=== PATIENT | female | born 1930 | race Caucasian/White ===

== ENCOUNTER 2018-01-13 09:55 | Inpatient (IN) | payer MEDICARE, OTHER ==
--- NOTE | 2018-01-13 10:27 | ED ---
General Adult HPI - General Chief complaint: ENT Stated complaint: Sore throat Source: patient, family Mode of arrival: EMS Limitations: no limitations - History of Present Illness Initial comments: Dictation was produced using [email or web address] dictation software. please excuse any grammatical, word or spelling errors. Chief Complaint: 87-year-old female past medical history of atrial fibrillation presents with throat fullness. History of Present Illness: In her baseline health last night when she took some pills. She went to bed feeling relatively benign. She woke up this morning and felt as though she had formed body in her throat. She states she's been coughing phlegm. She had bouts of coughing and some mild changes in her voice. She went to [facility] where she was transferred for ENT evaluation. Patient is accompanied by daughter who ports that patient is having signs of mild respiratory distress and has change in voice. The ROS documented in this emergency department record has been reviewed and confirmed by me. Those systems with pertinent positive or negative responses have been documented in the HPI. All other systems are other negative and/or noncontributory. - Related Data Home Medications Medication Instructions Recorded Confirmed Aspirin 81 mg PO DAILY 10/02/14 01/13/18 Atenolol [Tenormin] 25 mg PO DAILY 10/02/14 01/13/18 Enalapril [Vasotec] 2.5 mg PO DAILY 10/02/14 01/13/18 Hydrochlorothiazide [Hydrodiuril] 25 mg PO DAILY 10/02/14 01/13/18 Potassium Chloride [Klor-Con 10] 10 meq PO BID 10/02/14 01/13/18 Simvastatin [Zocor] 40 mg PO DAILY 10/02/14 01/13/18 Warfarin [Coumadin] 2.5 mg PO MO 10/02/14 01/13/18 Warfarin [Coumadin] 3.75 mg PO SUTUWETHFRSA 10/02/14 01/13/18 Allergies Allergy/AdvReac Type Severity Reaction Status Date / Time No Known Allergies Allergy Verified 01/13/18 10:06 Review of Systems ROS Statement: Those systems with pertinent positive or pertinent negative responses have been documented in the HPI. ROS Other: All systems not noted in ROS Statement are negative. Past Medical History Past Medical History: Atrial Fibrillation Additional Past Medical History / Comment(s): SEE DR BA'S H&P History of Any Multi-Drug Resistant Organisms: None Reported Past Surgical History: Appendectomy, Cholecystectomy, Hysterectomy, Pacemaker, Tonsillectomy Additional Past Surgical History / Comment(s): TUMOR REMOVED LT ARM,PACEMAKER- MEDTRONIC LT CHEST Past Anesthesia/Blood Transfusion Reactions: No Reported Reaction Type of Cardiac Device: Permanent Pacemaker Device Placement Date:: 2005 Past Psychological History: No Psychological Hx Reported Smoking Status: Never smoker Past Alcohol Use History: None Reported Past Drug Use History: None Reported - Past Family History Son(s) Family Medical History: Cancer Additional Family Medical History / Comment(s): ESOPHAGEAL Father Family Medical History: Cancer Additional Family Medical History / Comment(s): WITH CA AT AGE 34 General Exam - General Exam Comments Initial Comments: PHYSICAL EXAM: General Impression: Alert and oriented x3, not in acute distress HEENT: Normocephalic atraumatic, extra-ocular movements intact, pupils equal and reactive to light bilaterally, mucous membranes moist, no oropharyngeal swelling or erythema Cardiovascular: Heart regular rate and rhythm, S1&S2 audible, no murmurs, rubs or gallops Chest: Lungs clear to auscultation bilaterally, no rhonchi, no wheeze, no rales Abdomen: Bowel sounds present, abdomen soft, non-tender, non-distended, no organomegaly Musculoskeletal: Pulses present and equal in all extremities, no peripheral edema Motor: Power 5/5 bilaterally, no focal deficits noted Neurological: CN II-XII grossly intact, no focal motor or sensory deficits noted Skin: Intact with no visualized rashes Psych: Normal affect and mood Limitations: no limitations Course Vital Signs 01/13/18 01/13/18 10:02 13:00 Temperature 98.5 F 97.6 F Pulse Rate 64 75 Respiratory 16 18 Rate Blood Pressure 180/82 147/68 O2 Sat by Pulse 98 100 Oximetry Medical Decision Making - Medical Decision Making ED course: 87-year-old female presents with concerns of foreign body in throat. Vital signs upon arrival are within acceptable limits.Laboratory evaluation obtained. CBC shows no leukocytosis. Hemoglobin 10.6. Coag panel shows therapeutic INR 3.3. Metabolic panel is within acceptable limits. Soft tissue neck CT shows swelling at the hypopharynx bilaterally. Chest x-ray shows mild cardiomegaly and COPD. Computed tomography scan of the chest was obtained showing mild COPD, mild guarding mainly mild pulmonary arterial hypertension. There is a 4 mm left mid lung nodule. Discussed patient case with ENT on-call Dr. Davenport who was seen at bedside evaluating patient. He informed his oropharyngeal scoping and found findings consistent with early adult epiglottitis. Recommends steroid administration, infectious disease consult. He also recommended patient be admitted to selective care. Patient be admitted to [facility] care. - Lab Data Result diagrams: 01/13/18 11:28 01/13/18 11:28 Lab Results 01/13/18 01/13/18 01/13/18 Range/Units 11:28 11:28 11:28 WBC 9.3 (3.8-10.6) k/uL RBC 3.68 L (3.80-5.40) m/uL Hgb 10.6 L (11.4-16.0) gm/dL Hct 32.0 L (34.0-46.0) % MCV 87.0 (80.0-100.0) fL MCH 28.8 (25.0-35.0) pg MCHC 33.1 (31.0-37.0) g/dL RDW 13.0 (11.5-15.5) % Plt Count 156 (150-450) k/uL Neutrophils % 89 % Lymphocytes % 4 % Monocytes % 6 % Eosinophils % 1 % Basophils % 0 % Neutrophils # 8.3 H (1.3-7.7) k/uL Lymphocytes # 0.4 L (1.0-4.8) k/uL Monocytes # 0.5 (0-1.0) k/uL Eosinophils # 0.1 (0-0.7) k/uL Basophils # 0.0 (0-0.2) k/uL PT 29.8 H (9.0-12.0) sec INR 3.3 H (<1.2) Sodium 130 L (137-145) mmol/L Potassium 4.8 (3.5-5.1) mmol/L Chloride 97 L (98-107) mmol/L Carbon Dioxide 23 (22-30) mmol/L Anion Gap 10 mmol/L BUN 31 H (7-17) mg/dL Creatinine 1.21 H (0.52-1.04) mg/dL Est GFR (CKD-EPI)AfAm 47 (>60 ml/min/1.73 sqM) Est GFR (CKD-EPI)NonAf 41 (>60 ml/min/1.73 sqM) Glucose 97 (74-99) mg/dL Calcium 9.4 (8.4-10.2) mg/dL Disposition Clinical Impression: Epiglottitis Disposition: ADMITTED IP TO THIS HOSP Referrals: Romel Thomason MD [Primary Care Provider] - 1-2 days Decision Time: 13:31
[2018-01-13] MEDS ORDERED: RX INFO: IV CONTRAST WAS GIVEN 1 EACH MISC MISCELLANE PRN (10:41)
--- NOTE | 2018-01-13 10:53 | XR ---
EXAMINATION TYPE: XR chest 2V DATE OF EXAM: 01/13/2018 COMPARISON: None HISTORY: 87 year-old female shortness of breath, difficulty breathing, sore throat, TECHNIQUE: AP and lateral views FINDINGS: Left anterior chest wall pacemaker generator with right atrial and right ventricular leads. Heart is mildly enlarged. Diffuse interstitial prominence with hyperinflation and increased retrosternal clear space. Posterior basilar opacity could represent trace effusions. IMPRESSION: Mild cardiomegaly and COPD. Interstitial changes and possible trace effusions. Correlate for superimp osed mild CHF.
--- NOTE | 2018-01-13 11:19 | CT ---
EXAMINATION TYPE: CT soft tissue neck wo con DATE OF EXAM: 01/13/2018 COMPARISON: None HISTORY: 87-year-old female oral foreign body, Difficulty swallowing TECHNIQUE: Contiguous axial scanning of the soft tissues of the neck without IV contrast. Coronal and sagittal reconstructions performed. CT DLP: 390 mGycm Automated exposure control for dose reduction was used. FINDINGS: Visualized intracranial structures, orbits and globes, and mastoid air cells appear clear. Cerumen wi thin the left external auditory canal. Trace mucosal thickening ethmoid air cells. Lack of IV contrast limits assessment of the mucosal space and for cervical lymph nodes. Allowing for noncontrast technique, the nasopharynx appears clear. The oropharynx appears grossly clear. Epiglottis and prevertebral soft tissues are relatively normal. However, at the level of the hypopharynx, there is marked thickening along the aryepiglottic folds an d narrowing of the supraglottic airway to 5 mm and with effacement of the piriform sinuses. Some circumferential narrowing extends to the level of the false cords. More normal appearance at the level of the true cords. The tracheal column appears clear. Visualized upper lungs are limited by motion. There is biapical pleural-parenchymal scarring with tra ce effusions and underlying centrilobular emphysema. Generator device projects along the anterior lef t chest large caliber to the main right and the pulmonary arteries and 3.1 and 2.6 cm, respectively, suggesting underlying pulmonary hypertension. Noncontrast appearance of the thyroid gland is unremarkable. The submandibular and parotid glands are atrophic. No definite cervical lymphadenopathy identified. IMPRESSION: 1. ABNORMAL SOFT TISSUE THICKENING BILATERALLY ALONG THE ARYEPIGLOTTIC FOLDS EFFACING THE PIRIFORM SI NUSES AND NARROWING THE SUPRAGLOTTIC AIRWAY TO 5 MM. Correlate for possible etiologies such as infect ion and angioedema. Neoplasm also remains possible but the symmetry makes it somewhat less likely. Ap propriate follow-up recommended. 2. No radiopaque foreign body is identified. 3. Trace effusions and COPD. Pulmonary arterial hypertension.
[2018-01-13 11:40] LABS: Basophils % (A) 0 %; Eosinophils # (A) 0.1 k/uL (0-0.7); Eosinophils % (A) 1 %; HGB 10.6 gm/dL (11.4-16.0); Lymphocytes # (A) 0.4 k/uL (1.0-4.8); Lymphocytes % (A) 4 %; MCH 28.8 pg (25.0-35.0); MCHC 33.1 g/dL (31.0-37.0); Mean Platelet Volume 6.4; Monocytes # (A) 0.5 k/uL (0-1.0); Monocytes % (A) 6 %; Neutrophils # (A) 8.3 k/uL (1.3-7.7); Neutrophils % (A) 89 %; Platelet Count 156 k/uL (150-450); RBC 3.68 m/uL (3.80-5.40); WBC 9.3 k/uL (3.8-10.6)
--- NOTE | 2018-01-13 11:43 | CT ---
EXAMINATION TYPE: CT chest w con DATE OF EXAM: 01/13/2018 COMPARISON: Radiograph same day HISTORY: 87-year-old female with pain, Difficulty swallowing with abnormal CXR TECHNIQUE: Contiguous axial scanning of the chest after the administration of 70 mL of Isovue 300. Co jeannette/sagittal reconstructions performed. Patient's previous renal function was obtained from [facility] in GFR on 09/26/2017 was 2 6 vs 33 today. Suspect underlying chronic kidney disease in this patient. CT DLP: 320mGycm. Automatic exposure control utilized for a dose reduction. FINDINGS: Left anterior chest wall pacemaker generator with right atrial and right ventricular leads. Heart mildly enlarged. Mild coronary vascular calcifications. Conventional arch vessel branching anatomy with mild atherosclerotic arch calcifications. Large caliber to the main right and left pulmonary arteries and 2.7 cm suggesting underlying pulmonar y artery hypertension. No thoracic lymphadenopathy by CT size criteria. There are trace pleural effusions with some septal lines in the lower lungs, strandy areas of atelect asis, mild dependent atelectasis, and mild centrilobular emphysema. 4 mm peripheral left midlung pulmonary nodule can be reassessed in one year. Distention of the IVC. Visualized upper abdomen shows cholecystectomy clips and partially visualized cysts in the kidneys measuring up to at least 4.8 cm on the left. Bones: Accentuated upper thoracic kyphosis. There is some bony bridging of the supraspinous ligament. Moderate degenerative disc disease mid thoracic spine. IMPRESSION: 1. COPD with mild emphysema. 2. Cardiomegaly, pulmonary arterial hypertension, trace effusions, and mild septal lines in the lower lungs could reflect mild fluid overload/CHF. No mary pulmonary edema. 3. 4 mm left mid lung pulmonary nodule can be reassessed in one year.
[2018-01-13 11:53] LABS: INR 3.3 (<1.2); Prothrombin Time 29.8 sec (9.0-12.0)
[2018-01-13 12:00] LABS: Calcium 9.4 mg/dL (8.4-10.2); Potassium 4.8 mmol/L (3.5-5.1)
--- NOTE | 2018-01-13 13:21 | P.GSCN ---
History of Present Illness Consult date: 01/13/18 Reason for Consult: Dysphagia,throat pain Requesting physician: Carlos Davenport History of present illness: This patient is an 87-year-old white female who presented to [facility] emergency room earlier this morning then transferred here to [facility] for her neurologic care. This patient tells me that late last night she started having some difficulty with swallowing and throat pain a crescendoed and worsened this morning was brought to the emergency room by her daughter. Her current symptoms are one of throat pain and dysphagia. She has no airway symptoms rest of her examination was unremarkable laboratory evaluation was also unremarkable. Soft tissue x-ray was unremarkable. Abdomen asked to consult for a reevaluation. Review of Systems - Constitutional Reports anorexia - EENT Ears, nose, mouth and throat: Reports sore throat, Denies bleeding gums - Cardiovascular Denies claudication - Respiratory Denies congestion - Gastrointestinal Denies abdominal pain - Genitourinary Genitourinary: Denies difficulty voiding Menstruation: Reports postmenopausal - Musculoskeletal Denies frequent falls - Integumentary Denies brittle nails - Neurological Denies change in mentation - Psychiatric Denies anxiety attacks - Endocrine Denies cold intolerance - Hematologic/Lymphatic Reports easy bleeding (development both management with some pains until September) - Allergic/Immunologic Reports allergic rhinitis (A level of without really making: Floaters the winter [place] block but is an EKG [place]: 44 mg) Past Medical History Past Medical History: Atrial Fibrillation Additional Past Medical History / Comment(s): SEE DR BA'S H&P History of Any Multi-Drug Resistant Organisms: None Reported Past Surgical History: Appendectomy, Cholecystectomy, Hysterectomy, Pacemaker, Tonsillectomy Additional Past Surgical History / Comment(s): TUMOR REMOVED LT ARM,PACEMAKER- MEDTRONIC LT CHEST Past Anesthesia/Blood Transfusion Reactions: No Reported Reaction Type of Cardiac Device: Permanent Pacemaker Device Placement Date:: 2005 Past Psychological History: No Psychological Hx Reported Smoking Status: Never smoker Past Alcohol Use History: None Reported Past Drug Use History: None Reported - Past Family History Son(s) Family Medical History: Cancer Additional Family Medical History / Comment(s): ESOPHAGEAL Father Family Medical History: Cancer Additional Family Medical History / Comment(s): WITH CA AT AGE 34 Medications and Allergies Home Medications Medication Instructions Recorded Confirmed Type Aspirin 81 mg PO DAILY 10/02/14 01/13/18 History Atenolol [Tenormin] 25 mg PO DAILY 10/02/14 01/13/18 History Enalapril [Vasotec] 2.5 mg PO DAILY 10/02/14 01/13/18 History Hydrochlorothiazide [Hydrodiuril] 25 mg PO DAILY 10/02/14 01/13/18 History Potassium Chloride [Klor-Con 10] 10 meq PO BID 10/02/14 01/13/18 History Simvastatin [Zocor] 40 mg PO DAILY 10/02/14 01/13/18 History Warfarin [Coumadin] 2.5 mg PO MO 10/02/14 01/13/18 History Warfarin [Coumadin] 3.75 mg PO SUTUWETHFRSA 10/02/14 01/13/18 History Allergies Allergy/AdvReac Type Severity Reaction Status Date / Time No Known Allergies Allergy Verified 01/13/18 10:06 Surgical - Exam Osteopathic Statement: *. No significant issues noted on an osteopathic structural exam other than those noted in the History and Physical/Consult. Vital Signs Temp Pulse Resp BP Pulse Ox 98.5 F 64 16 180/82 98 01/13/18 10:02 01/13/18 10:02 01/13/18 10:02 01/13/18 10:02 01/13/18 10:02 - General well developed, well nourished, no distress - Eyes PERRL, normal ocular movement - ENT normal pinna, normal nares, normal mucosa, no congestion - Neck Left neck tenderness and fullness appreciated no masses, no bruits, trachea midline, no lymphadectomy - Respiratory normal expansion, normal respiratory effort, clear to percussion - Cardiovascular Rhythm: regularly irregular Results - Labs 01/13/18 11:28 01/13/18 11:28 Abnormal Lab Results - Last 24 Hours (Table) 01/13/18 01/13/18 01/13/18 Range/Units 11:28 11:28 11:28 RBC 3.68 L (3.80-5.40) m/uL Hgb 10.6 L (11.4-16.0) gm/dL Hct 32.0 L (34.0-46.0) % Neutrophils # 8.3 H (1.3-7.7) k/uL Lymphocytes # 0.4 L (1.0-4.8) k/uL PT 29.8 H (9.0-12.0) sec INR 3.3 H (<1.2) Sodium 130 L (137-145) mmol/L Chloride 97 L (98-107) mmol/L BUN 31 H (7-17) mg/dL Creatinine 1.21 H (0.52-1.04) mg/dL Diabetes panel 01/13/18 Range/Units 11:28 Sodium 130 L (137-145) mmol/L Potassium 4.8 (3.5-5.1) mmol/L Chloride 97 L (98-107) mmol/L Carbon Dioxide 23 (22-30) mmol/L BUN 31 H (7-17) mg/dL Creatinine 1.21 H (0.52-1.04) mg/dL Glucose 97 (74-99) mg/dL Calcium 9.4 (8.4-10.2) mg/dL Calcium panel 01/13/18 Range/Units 11:28 Calcium 9.4 (8.4-10.2) mg/dL Pituitary panel 01/13/18 Range/Units 11:28 Sodium 130 L (137-145) mmol/L Potassium 4.8 (3.5-5.1) mmol/L Chloride 97 L (98-107) mmol/L Carbon Dioxide 23 (22-30) mmol/L BUN 31 H (7-17) mg/dL Creatinine 1.21 H (0.52-1.04) mg/dL Glucose 97 (74-99) mg/dL Calcium 9.4 (8.4-10.2) mg/dL Adrenal panel 01/13/18 Range/Units 11:28 Sodium 130 L (137-145) mmol/L Potassium 4.8 (3.5-5.1) mmol/L Chloride 97 L (98-107) mmol/L Carbon Dioxide 23 (22-30) mmol/L BUN 31 H (7-17) mg/dL Creatinine 1.21 H (0.52-1.04) mg/dL Glucose 97 (74-99) mg/dL Calcium 9.4 (8.4-10.2) mg/dL Assessment and Plan (1) Dysphagia Current Visit: Yes Status: Acute Code(s): R13.10 - DYSPHAGIA, UNSPECIFIED SNOMED Code(s): 87628814 (2) Throat pain in adult Current Visit: Yes Status: Acute Code(s): R07.0 - PAIN IN THROAT SNOMED Code(s): 047583325 (3) Acute epiglottitis Current Visit: Yes Status: Acute Code(s): J05.10 - ACUTE EPIGLOTTITIS WITHOUT OBSTRUCTION SNOMED Code(s): 82994997 Plan: This patient has acute adult epiglottitis. Treatment with antibiotics and steroids as recommended. Blood cultures were drawn. Suspected organism is Haemophilus influenza. Recommend infectious disease consultation and close airway observation. Prefer ICU admission but are intensive care unit is full so we will send her to [facility] with close observation and telemetry. Time with Patient: Greater than 30
--- NOTE | 2018-01-13 13:23 | P.OP ---
Date of Procedure: 01/13/18 Preoperative Diagnosis: Throat pain dysphasia Postoperative Diagnosis: Acute adult epiglottitis Procedure(s) Performed: Nasopharngo- laryngoscopy, fiber-optic Anesthesia: none Surgeon: Carlos Davenport Estimated Blood Loss (ml): 0 Pathology: none sent Condition: stable Disposition: PACU Indications for Procedure: Patient has dysphasia and throat pain. Endoscopy was recommended for definitive diagnosis Operative Findings: Visual was found have severe epiglottic edema and arytenoid edema on the left side. Description of Procedure: This patient was placed in an upright position and endoscope was placed into the patient's nose with care to avoid any trauma to the septum or mucosa. Endoscopy was performed along the floor the nose on the left into the nasopharynx oropharynx and hypopharynx. Left-sided epiglottis and aryepiglottic fold and false cords were edematous and swollen with purulence present.
[2018-01-13] MEDS ORDERED: NALOXONE 0.4 MG/ML 1 ML VIAL IV PRN (13:27)
[2018-01-13] MEDS ORDERED: AMPICILLIN SULBACTAM IVPB SCH (13:30)
[2018-01-13] MEDS ORDERED: SODIUM CHLORIDE 0.9% IVPB SCH (13:30)
[2018-01-13] MEDS ORDERED: AMPICILLIN-SULBACTAM 3 GM in SODIUM CHLORIDE 0.9% 100 ML IVPB SCH (14:15)
[2018-01-13 15:58] VITALS: BMI 25.2
[2018-01-13 16:42] LABS: Glucose,Whole Blood 114 mg/dL (75-99)
[2018-01-13] MEDS: methylPREDNISolone SOD SUCCI 125 MG/2 ML VIAL IV SCH ×2 (17:07→23:17)
[2018-01-13] MEDS: AMPICILLIN-SULBACTAM 3 GM in SODIUM CHLORIDE 0.9% 100 ML IVPB SCH ×2 (17:58→23:18)
[2018-01-13] MEDS ORDERED: hydrALAZINE HCL 20 MG/ML 1 ML VIAL IVP PRN (18:08)
[2018-01-13] MEDS ORDERED: WARFARIN 2.5 MG TAB PO SCH (18:15)
[2018-01-13] MEDS: BUDESONIDE 0.25 MG/2 ML NEBU INHALATION SCH (19:24)
[2018-01-13] MEDS: PANTOPRAZOLE 40 MG/10 ML VIAL IVP SCH (19:59)
[2018-01-13 20:42] LABS: Glucose,Whole Blood 154 mg/dL (75-99)
[2018-01-13] MEDS: INSULIN ASPART 100 UNIT/ML 1 ML 10 ML VIAL SQ SCH (21:07)
--- NOTE | 2018-01-13 22:04 | HP ---
HISTORY AND PHYSICAL DATE OF SERVICE: 01/13/2018. ATTENDING PHYSICIAN: Dr. Romel Thomason. The patient is age 87-year-old white female . DATA: She is a 5 foot 3 inches, weight 64.5 kg, BSA 1.67 m2, BMI 25.2 kg/m2. Her allergy is unknown before. CHIEF COMPLAINT: The patient transferred from [facility] after she was evaluated in the ER and subsequently they transferred her to the ER at [facility]. The patient's chief complaint: She had inability to swallow with something in her throat, could not speak as well. HISTORY OF PRESENT ILLNESS: Mrs. Schwartz who is an 87 years old white female was presented initially to [facility] for evaluation with the loss of voice and as well as wheezing and that was today. They did a chemistry profile in that facility, found that her chloride was 95, carbon dioxide 23.8, BUN 32, creatinine 1.5, and glucose was 110, calcium 9.3, AST 26, ALT 24, alkaline phosphatase 150, total protein 7.2, albumin 3.8, bilirubin 0.8. Estimated glomerular filtration rate for non- was 33 with the underlying chronic kidney disease stage 3. She had rapid strep screen was done and was negative and she had a pro-time and INR and her pro-time was 35 and INR was prolonged at 3.058. Her white count however at [facility] was 8.3 with a hemoglobin of 10.9 and hematocrit 31.5 with the added underlying anemia. Her MCV was 85.3, and the platelet count was normal 167. She had a BMP and that BMP was indicating that she had 3688 with the elevated appeared to be underlying chronic cardiac abnormality. In reviewing of these laboratory as well they did soft tissue fullness in the epiglottis and subepiglottis area, which was done 01/13. She had a chest x-ray and the chest x-ray was indicating the right basilar atelectasis. Chronic interstitial lung disease correlate with COPD. The patient herself feeling took last night stuck in her throat with the shortness of breath. The chest x-ray showed hyperinflation with COPD and there is coarsened interstitial. No pneumothorax. Subsegmental changes in the right lung and she had a curvature of the spine with degenerative arthritis. Her medication was including warfarin and she was using Voltaren gel, spironolactone, simvastatin, omeprazole, multivitamin with PreserVision, lutein, and that is the 1 that she took with the Coumadin at night and felt that this pill stuck in her throat causing her problems. She also on Lasix and enalapril, which is ISMA inhibitor and Atenolol and aspirin 81 mg. She has been using Maalox and lidocaine, and Acetaminophen. PAST MEDICAL HISTORY: Past medical history of hypertension, hypercholesteremia, arthritis, atrial fibrillation and pacemaker and history of congestive heart failure. In the [facility] facility, her temperature was 98.2, and she has 100% pulse ox, respiratory rate 16, and blood pressure 161/82, of the right arm in the laying down position. Underlying past medical history has a history of arthritis, atrial fibrillation, congestive heart failure, hypercholesterolemia and hypertension and had a cardiac pacemaker and her cardiology is Dr. Delong. On the laboratory, the chemistry was done as well and found that her sodium was 126, which is hyponatremic, also, BUN of 32 and creatinine 1.5 with the underlying chronic kidney disease stage 3. The pro-time as mentioned above was mildly exceeding the 3. The final diagnosis of the chest x-ray on 01/13/2018 today and today showed that had chronic interstitial lung disease or venous congestion and correlate with COPD and x- ray of the neck showed that soft tissue there is facet arthropathy and also soft tissue fullness in the epiglottic and subglottic area and subsequently the patient transferred from [facility] to the [facility] ER where she was seen by Dr. Donte Niocle ER physician and as he has expressed in his note of the same, that presented with last night, took some pills and this morning she could not eat and feeling it in the throat, coughing up the phlegm as well and she changed her voice. Subsequently, they called Dr. Davenport, the ENT on-call, and he came actually and saw the patient and advised to be admitted to gear [facility] and he did endoscopy with the laryngeal scope fiberoptic and with the underlying dysphagia and throat pain and he found that she had severe epiglottic edema and arytenoid edema on the left side. He recommended that the patient be admitted and started on steroid and Infectious Disease consultation. Patient subsequently seen by Dr. Leonard, infectious Disease and Dr. Davenport his assessment dysphagia and throat pain in the acute epiglottitis. He has a treatment with antibiotic and culture and could be the Haemophilus influenza as a possibility was present and with the close observation and intensive care. He requested intensive care, however, was not available bed as it was full and admitted to the gear finisher bed. She had by the x-ray abnormal soft tissue thickening bilaterally along the aryepiglottic fold effacing the piriform sinus and narrowing of the supraglottic airway to 5 mm. No opaque foreign body is identified and there is trace effusion and COPD and pulmonary arterial hypertension. Her chest x- ray showed cardiomegaly and COPD and interstitial changes. CT scan of the chest was also obtained prior to the admission with the finding indicating left anterior chest wall pacemaker generator with the right atrial and right ventricular lead. She had mild enlargement of the heart and mild coronary vascular calcification. She had large caliber main right and left pulmonary artery and 2.7 cm suggesting of underlying pulmonary hypertension. There is trace pleural effusion and there is 4 mm of the left mid lung pulmonary nodule could not be assessed now, but he had mentioned to be the assessed in 1 year duration. On the continuation, review of systems, patient family history: She had 2 sons. One son with cancer and another son is doing fine and the son who with cancer has esophageal and after he got out of [facility] found that metastasized. She has a 3 daughters and as well emphysema, 1 of them had emphysema and and 2 daughters are fine. ALLERGIES: His allergy was mention unknown, however, probably there is the current history indicated there is some associated allergy with her medication REVIEW OF SYSTEMS: Patient unable to communicate. Her daughter at bedside, able to sit and communicate and she stated that she has been feeling well and she denied any depression or anxiety and cardiovascular no chest pain or anginal pain or history only for pacemaker and history of atrial fibrillation. The chest, no pulmonary shortness of breath. No cough, now currently with the feeling of obstruction and swelling of the oropharynx. She has been spitting. The GI no nausea, vomiting, or diarrhea or hematochezia or hematemesis or melena. On the no dysuria or hematuria. The musculoskeletal was fine and she is able to walk and she is able to eat prior to this event. PHYSICAL EXAMINATION: The patient is conscious, alert, oriented. Her vital signs are temperature 97.9, pulse 79, respiratory rate 18, blood pressure 142/76, and she is a mean 98 and saturation on room air 97. The HEENT: The head was no normocephalic, atraumatic. The pupil was equal, reactive. She is able to hear and she unable to speak with underlying aphasia or difficulty of speech or hoarseness of voice associated with the epiglottitis. The neck was supple. No lymphadenopathy and trachea midline. The chest was aerated bilateral with increased anteroposterior diameter and she had a mild dorsal kyphosis. The heart was PMI in the 5th intercostal space outside midclavicular line with the underlying irregular irregularities with the left infraclavicular pacemaker. The abdomen is soft, positive bowel sounds. Extremities: No edema and positive pulses bilateral and symmetrical. Neurological examination was negative. ASSESSMENT: 1. The association of the epiglottitis could be infection with Haemophilus influenzae. However, the effect was very sudden from not with the 12 hour at least and possibility of allergic effect has been happen from medication or pill and at this time I did review her medication list and I did hold for the medication suspicious which is could be ISMA inhibitor and that has been held. Also the nonsteroidal anti- inflammatory can do that as well and we held all this medication. 2. Hypertension with hypertensive heart disease. 3. Atrial fibrillation, currently controlled ventricular response. 4. Degenerative osteoarthritis. With the current problem with swallowing of the epiglottitis with no previous progression, suddenly happened probably after she took her 2 pills at night, 1 of the Coumadin which she has been for a long time and the other 1 is PreserVision and we are trying to see if any component of the PreserVision did that. However, the compound of medication that she is using right now will be the possible effect. PLAN: The plan for treatment: 1. Antibiotic. 2. Steroids, systemic which ordered by Dr. Davenport which he is on consultation. 3. We held all the blood pressure medication due to inability to swallow the pills and we are starting her on Budesonide inhalation 0.25 mg inhalation twice a day for the inhaler to the upper respiratory system to help improvement. 4. Further laboratory will be tomorrow and will see if improvement. 5. Meanwhile, we started her on pantoprazole and IV piggyback to decrease the swelling as well and 40 mg. 6. As well as Atarax 10 mg twice a day. The current diagnosis of as mentioned above: 1. Acute epiglottitis. 2. Hypertension. 3. History of atrial fibrillation. 4. History of chronic obstructive pulmonary disease with emphysema and by the x-ray. 5. Underlying problem with history of congestive heart failure. However, we do not have any previous echo to clarify that issue. 6. We will be monitoring the patient and further treatment depends on the outcome. MMODL / IJN: [id number] /
[2018-01-13] MEDS: DICLOFENAC SODIUM GEL 100 GM TUBE TOPICAL PRN (23:18)
[2018-01-14 05:50] LABS: Glucose,Whole Blood 149 mg/dL (75-99)
[2018-01-14] MEDS: AMPICILLIN-SULBACTAM 3 GM in SODIUM CHLORIDE 0.9% 100 ML IVPB SCH ×4 (06:03→23:14)
[2018-01-14 06:32] LABS: Basophils % (A) 0 %; Eosinophils % (A) 0 %; HCT 31.2 % (34.0-46.0); HGB 10.3 gm/dL (11.4-16.0); Lymphocytes # (A) 0.2 k/uL (1.0-4.8); Lymphocytes % (A) 3 %; MCH 28.5 pg (25.0-35.0); MCHC 32.8 g/dL (31.0-37.0); MCV 86.9 fL (80.0-100.0); Mean Platelet Volume 6.8; Monocytes # (A) 0.1 k/uL (0-1.0); Monocytes % (A) 2 %; Neutrophils # (A) 6.9 k/uL (1.3-7.7); Neutrophils % (A) 95 %; Platelet Count 139 k/uL (150-450); WBC 7.2 k/uL (3.8-10.6)
[2018-01-14 06:34] LABS: INR 3.7 (<1.2); Prothrombin Time 33.6 sec (9.0-12.0)
[2018-01-14] MEDS: INSULIN ASPART 100 UNIT/ML 1 ML 10 ML VIAL SQ SCH ×4 (06:37→20:54)
[2018-01-14 06:50] LABS: Calcium 9.7 mg/dL (8.4-10.2); Potassium 4.6 mmol/L (3.5-5.1)
[2018-01-14] MEDS: BUDESONIDE 0.25 MG/2 ML NEBU INHALATION SCH ×2 (08:24→20:59)
[2018-01-14] MEDS: methylPREDNISolone SOD SUCCI 125 MG/2 ML VIAL IV SCH ×3 (08:41→23:14)
[2018-01-14] MEDS: PANTOPRAZOLE 40 MG/10 ML VIAL IVP SCH ×2 (08:41→19:42)
[2018-01-14] MEDS: ATENOLOL 25 MG TAB PO SCH ×2 (08:41→11:40)
--- NOTE | 2018-01-14 08:41 | CONS ---
CONSULTATION DATE OF SERVICE: 01/13/2018. REASON FOR CONSULTATION: Epiglottitis. HISTORY OF PRESENT ILLNESS: The patient is an 87-year-old female who apparently started having some difficulty swallowing and some sore throat last evening. Apparently the patient seemed to have been unable to swallow one of her pills. She has been complaining of some dull aching pain to the throat area, mostly with swallowing, intensity about 4 to 5/10, and no radiation. The patient denies other URI symptoms. Did have some chills but denies any high-grade fever. No nausea, no vomiting. No abdominal pain or any diarrhea. With these symptoms, the patient initially presented to the [facility]. Subsequently the patient has been to [facility] to be evaluated by neurology. On arrival, the patient did have a soft tissue neck CT obtained, which did show abnormal soft tissue thickening bilaterally along the narrow epiglottic folds, piriform sinuses and narrowing of the supraglottic airway. Culture for possible etiologies such as infection and angioedema. The patient has been evaluated by ENT and confirmed the diagnosis of epiglottitis. The patient has been admitted to the hospital. She was started on Unasyn and Solu-Medrol. Infectious Disease was consulted for further recommendation regarding antibiotic therapy. The patient did not recall if she has been around any little kids and nobody else in the family has been sick with similar illness. REVIEW OF SYSTEMS: CONSTITUTIONAL: Positive for weakness and some chills. No fever has been recorded. EYES: No complaint. ENT: As per HPI. RESPIRATORY: As per HPI. CARDIOVASCULAR: No complaint. GENITOURINARY: No complaint. GASTROINTESTINAL: No complaint. MUSCULOSKELETAL: No complaint. INTEGUMENTARY: No complaint. PSYCHOLOGICAL: No complaint. ENDOCRINE: No complaint. NEUROLOGIC: No complaint. PAST MEDICAL HISTORY: Significant for atrial fibrillation. PAST SURGICAL HISTORY: Appendectomy, cholecystectomy, hysterectomy, pacemaker placement, tumor removed from the left arm. SOCIAL HISTORY: No history of smoking, drinking, or drug use. FAMILY HISTORY: No pertinent findings noticed. ALLERGIES: No known drug allergies. MEDICATIONS: The patient is currently on Unasyn 3 g q.12h. She is on Tenormin, Pulmicort, , hydralazine, NovoLog, Solu-Medrol, Narcan Protonix, and Coumadin. PHYSICAL EXAMINATION: Her blood pressure is 132/74 with a pulse of 71. Temperature of 97. She is 97% on room air. General description is an elderly female, lying in bed in no distress. No tachypnea or accessory muscle of respiration use. HEENT: Shows slight pallor. No scleral icterus. Oral mucosa is moist. No pharyngeal erythema or thrush. NECK: Trachea central. No thyromegaly. LUNGS: Unlabored breathing. Clear to auscultation anteriorly. No wheeze or crackle. HEART: S1, S2 is regular rhythm. ABDOMEN: Soft, no tenderness. No guarding or rigidity. EXTREMITIES: No edema feet. SKIN EXAMINATION: No rash or mass palpable. NEUROLOGICAL: The patient is awake, alert, oriented x3. Mood and affect normal. LABS: Hemoglobin is 10.5, white count 9.3 with a BUN of 31, creatinine is 1.1. Electrolytes have been normal. CT report as mentioned above. Blood cultures obtained which are currently pending. DIAGNOSTIC IMPRESSION AND PLAN: Patient admitted to hospital with difficulty swallowing, sore throat with evidence of epiglottitis on the resolution of pharyngeal area by the ENT, which could be either a viral or bacterial etiology. However, the lack of systemic symptoms and no elevated white count which points to possible infectious etiology. However, due to her will recommend coverage with antibiotics while waiting for her condition to stabilize. PLAN: 1. Blood culture has been obtained, which we will follow. 2. We will increase the Unasyn to 3 g q.6 hours. The patient's creatine kinase is 47. 3. We will follow up on her clinical condition as well as cultures to further adjust medication if needed. Thank you for this consultation. Will follow this patient along with you. MMODL / IJN: [id number] /
[2018-01-14 12:04] LABS: Glucose,Whole Blood 131 mg/dL (75-99)
[2018-01-14] MEDS: WARFARIN 1.25 MG TAB PO SCH (15:44)
[2018-01-14 17:07] LABS: Glucose,Whole Blood 131 mg/dL (75-99)
[2018-01-14 20:31] LABS: Glucose,Whole Blood 197 mg/dL (75-99)
--- NOTE | 2018-01-14 22:44 | PN ---
PROGRESS NOTE ATTENDING PHYSICIAN AND PCP: Dr. Romel Thomason. Admitted on 01/13/2018 The patient admitted after she was seen in the emergency room at [facility] and transferred by ambulance to [facility] ER and subsequently seen by Dr. Davenport and the ENT and Dr. Leonard, infectious Disease. The patient was diagnosed with the acute epiglottitis and of a sudden onset with the questionable sticking of tablet in her throat and she was thought that PreserVision pills. Subsequently, she could not speak. She could not swallow with acute hard swallowing and could not breathe and however they came to the ER. Dr. Davenport did endoscopy and found that the above had and subsequent treated with the steroids. The patient today on examination: She is conscious, alert, oriented, very happy that she is able to speak now and is able to communicate and she does not have fluoride on the pad and meanwhile she is breathing better. She is eating better but still some difficulties of the throat. Her vital signs indicating the temperature 97 orally, pulse is 72, respiratory rate 16, and blood pressure 132/60, mean 84 and room air 97. She has the sputum preliminary sputum was nondiagnostic and she had blood cultures no growth in 24 hours and so far no evidence of Haemophilus influenzae, however that is symptomatic acute allergic effect and could be from medication and for that purpose we adjusted her medication and we removed the inflected medicine that can do this problem. Today, her blood pressure is normal 132/60 and the medication currently is she is on antibiotic with the possibility of Haemophilus influenzae. She is on budesonide inhalation to help resolution of the edema of the epiglottis and she has a Voltaren cream for the arthritis gel only local. She is on hydralazine IV push every 6 hours if the blood pressure is high above of 50, which is not at this time. She is in insulin to scale and she is not receiving it. She is also on prednisone 60 mg IV q.8 hours for the dilution of the acute edema with typical of epiglottitis. She is also on pantoprazole IV and will continue that until tomorrow and she is on warfarin and also warfarin is 2.5 mg once a daily, and we will be continuing to monitor the atrial fibrillation and her Coumadin today is exceeding 3 and we will hold the Coumadin today and continue tomorrow and obtaining the PT and INR. On today, her INR was indicating to be 3.7, and we will be holding the Coumadin today. I did communicate that with Maida the RN that is taking care of the patient. Examination HEENT was negative. Neck was supple and she is able to swallow and she still has some spitting, clear liquid, no sputum. The neck was supple and no JVD. Feeling much improved in the lower neck. CHEST: Clear to auscultation percussion and the heart was irregular irregularities with atrial fibrillation and occasionally pacing as she had left infraclavicular pacemaker. The abdomen is soft. Positive bowel sounds. No organ enlargement. EXTREMITIES: No edema and positive pulses. No neurological deficit. ASSESSMENT: 1. Underlying hypertension controlled presented with epiglottitis with hoarseness of voice and epiglottis with the underlying found by laryngeal scope fiberoptic that she had epiglottic edema and arytenoid edema on the left side and was severe in nature. 2. Chronic obstructive pulmonary disease. 3. Mild emphysema. 4. Cardiomegaly. 5. History of pulmonary hypertension. 6. Trace effusion. 7. Mild septal line in the lower lung, reflecting mild congestive heart failure. No mary pulmonary edema. A 4 mm left mid lung pulmonary nodule need to be reassessed in 1 year. PLAN: Patient will be continued care by Dr. Romel Thomason who is her PCP tomorrow and he will be following the patient and future CAT scan as well as future plans for discharge. MMODL / IJN: [id number] /
[2018-01-14] MEDS: DICLOFENAC SODIUM GEL 100 GM TUBE TOPICAL PRN (23:14)
[2018-01-15 06:04] LABS: Glucose,Whole Blood 146 mg/dL (75-99)
[2018-01-15] MEDS: INSULIN ASPART 100 UNIT/ML 1 ML 10 ML VIAL SQ SCH ×4 (06:27→21:05)
[2018-01-15] MEDS: AMPICILLIN-SULBACTAM 3 GM in SODIUM CHLORIDE 0.9% 100 ML IVPB SCH ×4 (06:27→23:40)
[2018-01-15 07:58] LABS: Basophils % (A) 0 %; Eosinophils % (A) 0 %; HCT 31.2 % (34.0-46.0); HGB 10.1 gm/dL (11.4-16.0); Lymphocytes # (A) 0.2 k/uL (1.0-4.8); Lymphocytes % (A) 2 %; MCH 28.3 pg (25.0-35.0); MCHC 32.5 g/dL (31.0-37.0); MCV 87.2 fL (80.0-100.0); Mean Platelet Volume 7.2; Monocytes # (A) 0.4 k/uL (0-1.0); Monocytes % (A) 3 %; Neutrophils # (A) 10.8 k/uL (1.3-7.7); Neutrophils % (A) 94 %; Platelet Count 146 k/uL (150-450); RBC 3.58 m/uL (3.80-5.40); RDW 12.9 % (11.5-15.5); WBC 11.4 k/uL (3.8-10.6)
--- NOTE | 2018-01-15 08:01 | XR ---
EXAMINATION TYPE: XR chest 2V DATE OF EXAM: 01/15/2018 COMPARISON: 01/13/2018 INDICATION: Pneumonia TECHNIQUE: Frontal and lateral views of the chest are obtained. FINDINGS: The heart size is normal. The pulmonary vasculature is normal. There is increased AP diameter with increased kyphosis. There is a prominent retrosternal airspace. F indings are compatible with senile emphysema this change. Small posterior infiltrate and/or effusion is stable. IMPRESSION: 1. COPD. 2. Small posterior infiltrate and/or effusion, stable from comparison
--- NOTE | 2018-01-15 08:02 | PN ---
PROGRESS NOTE DATE OF SERVICE: 01/14/2018. REASON FOR FOLLOWUP: Epiglottitis. INTERVAL HISTORY: The patient is afebrile. Her sore throat has improved. Denies any difficulty swallowing. The patient does have a congested cough now and is bringing up some sputum. The patient denies having any nausea, no vomiting. No abdominal pain or any diarrhea. Has been tolerating her antibiotic. PHYSICAL EXAMINATION: The blood pressure is 137/57 with a pulse of 72, temperature 97.2. She is 97% on room air. GENERAL DESCRIPTION: An elderly female up in the bed in no distress. RESPIRATORY SYSTEM: Unlabored breathing. Coarse breath sounds at the bases. No wheeze. HEART: S1, S2. Regular rate and rhythm. No tenderness. LABS: Hemoglobin is 10.8, white count is 7.2, BUN of 27, creatinine is 1.16. Blood culture has been negative so far. Sputum has been collected, currently pending. DIAGNOSTIC IMPRESSION AND PLAN: Patient admitted to the hospital with sore throat and difficulty swallowing in a patient who was examined by ENT with direct [id number] examination and has left sided epiglottitis. The patient is currently covered with Zosyn. She has developed a congested cough. Sputum has been obtained. Chest x-ray will be repeated tomorrow. Continue with Unasyn. Continue supportive care. MMODL / IJN: [id number] /
[2018-01-15 08:12] LABS: INR 3.1 (<1.2); Prothrombin Time 27.3 sec (9.0-12.0)
[2018-01-15 08:30] LABS: Calcium 9.5 mg/dL (8.4-10.2); Potassium 4.7 mmol/L (3.5-5.1)
[2018-01-15] MEDS: methylPREDNISolone SOD SUCCI 125 MG/2 ML VIAL IV SCH ×3 (09:20→23:40)
[2018-01-15] MEDS: ATENOLOL 25 MG TAB PO SCH (09:20)
[2018-01-15] MEDS: PANTOPRAZOLE 40 MG/10 ML VIAL IVP SCH ×2 (09:21→21:05)
[2018-01-15] MEDS: BUDESONIDE 0.25 MG/2 ML NEBU INHALATION SCH ×2 (09:27→20:54)
[2018-01-15 11:14] LABS: Glucose,Whole Blood 132 mg/dL (75-99)
[2018-01-15 11:32] LABS: Hemoglobin A1C 5.7 % (4.0-6.0)
--- NOTE | 2018-01-15 13:02 | CDI ---
Last Revision, April 2017 Documentation Clarification Form Date: 01/15/2018 12:54:40 PM From: Vicki PrasadJOSE E, CCDS Admit Date: 01/13/2018 1:27:00 PM Patient Name: Sho Schwartz Visit Number: [id number] Discharge Date: ATTENTION: The Clinical Documentation Specialists (CDI) and [facility] Coding Staff appreciate your assistance in clarifying documentation. Please respond to the clarification below the line at the bottom and electronically sign. The CDI & [facility] Coding staff will review the response and follow-up if needed. Please note: Queries are made part of the Legal Health Record. If you have any questions, please contact the author of this message via ITS. Dr. Tawanda DELANEY MD or Dr. Romel Thomason: A diagnosis of anemia lacks specificity to accurately reflect your patients severity of condition and clarification is needed. Anemia is documented in the History & Physical: "Her white count however at [facility] was 8.3 with a hemoglobin of 10.9 and hematocrit 31.5 with the added underlying anemia." History/Risk Factors: Atrial fibrillation on Coumadin, Pacemaker, non smoker. Clinical indicators: Transferred from [facility] with inability to swallow & vocal changes. Diagnosed with acute epiglottitis. Hemoglobin: 10.6, 10.3, 10.1 Hematocrit: 32.0, 31.2, 31.2 Treatment: IV Ampicillin, IV Solumedrol, IV Apresoline, Neb treatments. In order to capture the severity of condition, please clarify the type of anemia and etiology if known: Acute on chronic blood loss anemia Chronic blood loss anemia Iron deficiency anemia Hemolytic anemia Drug induced anemia Nutritional anemia Anemia of chronic kidney disease Unable to determine Other, please specify MTDD
--- NOTE | 2018-01-15 13:12 | CDI ---
Last Revision, April 2017 Documentation Clarification Form Date: 01/15/2018 1:03:22 PM From: Vicki VancePrasadJOSE E gamino, CCDS Admit Date: 01/13/2018 1:27:00 PM Patient Name: Sho Schwartz Visit Number: [id number] Discharge Date: ATTENTION: The Clinical Documentation Specialists (CDI) and [facility] Coding Staff appreciate your assistance in clarifying documentation. Please respond to the clarification below the line at the bottom and electronically sign. The CDI & [facility] Coding staff will review the response and follow-up if needed. Please note: Queries are made part of the Legal Health Record. If you have any questions, please contact the author of this message via ITS. Dr. Tawanda DELANEY or Dr. Romel Thomason MD: 87 yo female, admitted with acute adult epiglottitis. History/Risk Factors: Atrial Fibrillation with pacemaker on Coumadin, Hypertension, CKD III & CHF nos. Clinical Indicators: Presented with difficulty swallowing. Per the 01/14 Progress Note: "Mild septal line in the lower lung, reflecting mild congestive heart failure." VS: P 64, R 16, BP 180/82, PO 98 ra BNP: 3688 Chest X Ray: Mild cardiomegaly & COPD, interstitial changes & possible trace effusions, correlate for superimposed mild CHF. CT chest: COPD with mild emphysema. Cardiomegaly, pulmonary arterial hypertension, trace effusions & mild septal lines in lower lungs could reflect mild fluid overload/CHF, no pulmonary edema. Treatment: IV Ampicillin, IV Solumedrol, Insulin sc, Coumadin po, Telemetry. In your professional opinion, can you please clarify the acuity and type of CHF if known? Systolic Heart Failure: o Acute o Chronic o Acute on Chronic Diastolic Heart Failure: o Acute o Chronic o Acute on Chronic Systolic & Diastolic Heart Failure: o Acute o Chronic o Acute on Chronic Unable to Determine Other, please specify MTDD
--- NOTE | 2018-01-15 15:12 | PN ---
PROGRESS NOTE DATE OF SERVICE: 01/15/2018 This is an 87-year-old female who was brought to the emergency room with acute onset of throat pain, difficulty in swallowing and difficulty in talking and the patient's symptoms progressively got worse, so she was brought to the emergency room. The patient was seen by Dr. Davenport and she had an endoscopy and the patient was diagnosed to have acute epiglottitis and she was admitted to the hospital for further evaluation and treatment. The patient was also seen by Dr. Leonard in consultation from Infectious Disease. The patient was started on IV antibiotics. Currently she is receiving Zosyn and also she was started on IV Solu-Medrol and Pulmicort nebulizers and she was placed back on her previous home medications. She is known to have hypertensive cardiovascular disease, chronic atrial fibrillation and hyperlipidemia and she is back on her previous medications which include Enalapril, Atenolol, Coumadin, omeprazole, simvastatin and Lasix. The patient's symptoms are starting to improve. Chest x-ray showed posterior infiltrate and/or effusion. Currently, patient appears to be more comfortable, alert and oriented and heart is in atrial fibrillation with controlled ventricular rate. No murmur. Lungs are clear to auscultation and percussion. The patient's vital signs were stable. She he is able to swallow better. This patient's epiglottitis and the symptoms of difficulty in swallowing and speaking are getting better. She is has no acute cardiorespiratory problems. We will continue current medications including the IV antibiotics and IV Solu-Medrol and the prognosis is guarded. The diagnosis, prognosis and therapeutic plans were discussed in detail with the patient and her daughter. MMODL / IJN: [id number] /
[2018-01-15 17:00] LABS: Glucose,Whole Blood 135 mg/dL (75-99)
--- NOTE | 2018-01-15 17:12 | PN ---
PROGRESS NOTE DATE OF SERVICE: 01/15/2018. REASON FOR FOLLOW UP: 1. Possible epiglottitis. 2. Possible pneumonia. INTERVAL HISTORY: The patient is feeling better. Sore throat has improved. Denies any difficulty swallowing. No chest pain. She did have some cough but decreasing in intensity and is less productive now. No abdominal pain and no diarrhea. EXAMINATION: Blood pressure 159/81 with a pulse of 59. Temperature is 97.1. She is 98% on room air. General description is an elderly female lying in bed in no distress. RESPIRATORY SYSTEM: Unlabored breathing. Clear to auscultation anteriorly. HEART: S1, S2. Regular rate and rhythm. ABDOMEN: Soft, no tenderness. LABS: Hemoglobin is 10.1, white count of 9.4, BUN of 41, creatinine 1.31. Sputum culture currently pending. Chest x-ray with COPD but no pneumonia. DIAGNOSTIC IMPRESSION AND PLAN: Patient admitted to hospital with difficulty swallowing and sore throat with diagnosis of left epiglottitis plus-minus tracheobronchitis. Patient currently covered with short course of oral Augmentin at discharge. Continue supportive care. MMODL / IJN: [id number] /
[2018-01-15] MEDS: DICLOFENAC SODIUM GEL 100 GM TUBE TOPICAL PRN (17:21)
[2018-01-15] MEDS: WARFARIN 1.25 MG TAB PO SCH (17:33)
[2018-01-15 20:53] LABS: Glucose,Whole Blood 196 mg/dL (75-99)
[2018-01-16 06:10] LABS: Glucose,Whole Blood 135 mg/dL (75-99)
[2018-01-16] MEDS: AMPICILLIN-SULBACTAM 3 GM in SODIUM CHLORIDE 0.9% 100 ML IVPB SCH ×2 (06:22→12:13)
[2018-01-16] MEDS: INSULIN ASPART 100 UNIT/ML 1 ML 10 ML VIAL SQ SCH ×2 (06:23→12:11)
[2018-01-16] MEDS: PANTOPRAZOLE 40 MG/10 ML VIAL IVP SCH (08:38)
[2018-01-16] MEDS: methylPREDNISolone SOD SUCCI 125 MG/2 ML VIAL IV SCH (08:38)
[2018-01-16] MEDS: ATENOLOL 25 MG TAB PO SCH (08:38)
[2018-01-16] MEDS: BUDESONIDE 0.25 MG/2 ML NEBU INHALATION SCH (08:46)
[2018-01-16 09:06] VITALS: RESP 20
[2018-01-16 11:29] VITALS: BP 156/72; PULSE 76; TEMP 96.9
[2018-01-16 12:11] LABS: Glucose,Whole Blood 110 mg/dL (75-99)
--- NOTE | 2018-01-16 16:29 | PN ---
PROGRESS NOTE DATE OF SERVICE: 01/16/2018. REASON FOR FOLLOWUP: 1. Acute epiglottitis. 2. Possible bronchitis/pneumonia. INTERVAL HISTORY: The patient was seen on rounds this morning. The patient has been afebrile. She is feeling better. Denies any further sore throat. She did have some minimal, brining up some sputum. No chest pain. No abdominal pain. No diarrhea. EXAMINATION: Blood pressure 156/72 with a pulse of 76. Temperature 96.9. She is 99% on room air. General description is an elderly female up in the bed in no distress. HEENT EXAMINATION: No pallor or scleral icterus. LUNGS: Unlabored breathing, decreased breath sounds at the bases. No wheeze. HEART: S1, S2. Regular rate and rhythm. ABDOMEN: Soft, no tenderness. LABS: Sputum culture has been in usual respiratory wm. Blood culture negative. DIAGNOSTIC IMPRESSION AND PLAN: Patient admitted to the hospital with sore throat, difficulty breathing, diagnosed with acute epiglottitis with question of possible tracheobronchitis/clinical pneumonia. Patient did show overall improvement on Unasyn. Finish therapy with oral Augmentin for about a week. Continue supportive care. MMODL / IJN: [id number] /
--- NOTE | 2018-01-21 08:13 | CDI ---
Last Revision, April 2017 Documentation Clarification Form Date: 01/15/2018 12:54:00 PM Resubmitted 01/21/2018 From: Vicki Prasad CCS, CCDS Admit Date: 01/13/2018 1:27:00 PM Patient Name: Sho Schwartz Visit Number: [id number] Discharge Date: 01/16/2018 ATTENTION: The Clinical Documentation Specialists (CDI) and [facility] Coding Staff appreciate your assistance in clarifying documentation. Please respond to the clarification below the line at the bottom and electronically sign. The CDI & [facility] Coding staff will review the response and follow-up if needed. Please note: Queries are made part of the Legal Health Record. If you have any questions, please contact the author of this message via ITS. Tawanda Manriquez MD or Dr. Romel Thomason: A diagnosis of anemia lacks specificity to accurately reflect your patients severity of condition and clarification is needed. History/Risk Factors: Atrial fibrillation on Coumadin, Pacemaker, non smoker. Clinical indicators: Transferred from [facility] with inability to swallow & vocal changes. Diagnosed with acute epiglottitis. Hemoglobin: 10.6, 10.3, 10.1 Hematocrit: 32.0, 31.2, 31.2 Treatment: IV Ampicillin, IV Solumedrol, IV Apresoline, Neb treatments. In order to capture the severity of condition, please clarify the type of anemia and etiology if known: Acute on chronic blood loss anemia Chronic blood loss anemia Iron deficiency anemia Hemolytic anemia Drug induced anemia Nutritional anemia Anemia of chronic kidney disease Unable to determine Other, please specify MTDD
--- NOTE | 2018-01-21 08:16 | CDI ---
Last Revision, April 2017 Documentation Clarification Form Date: 01/15/2018 1:03:00 PM Resubmitted 01/21/2018 From: Vicki Prasad CCS, CCDS Admit Date: 01/13/2018 1:27:00 PM Patient Name: Sho Schwartz Visit Number: [id number] Discharge Date: 01/16/2018 ATTENTION: The Clinical Documentation Specialists (CDI) and [facility] Coding Staff appreciate your assistance in clarifying documentation. Please respond to the clarification below the line at the bottom and electronically sign. The CDI & [facility] Coding staff will review the response and follow-up if needed. Please note: Queries are made part of the Legal Health Record. If you have any questions, please contact the author of this message via ITS. Tawanda Manriquez MD: 87 yo female, admitted with acute adult epiglottitis. History/Risk Factors: Atrial Fibrillation with pacemaker on Coumadin, Hypertension, CKD III & CHF nos. Clinical Indicators: Presented with difficulty swallowing. VS: P 64, R 16, BP 180/82, PO 98 ra BNP: 3688 Chest X Ray: Mild cardiomegaly & COPD, interstitial changes & possible trace effusions, correlate for superimposed mild CHF. CT chest: COPD with mild emphysema. Cardiomegaly, pulmonary arterial hypertension, trace effusions & mild septal lines in lower lungs could reflect mild fluid overload/CHF, no pulmonary edema. Treatment: IV Ampicillin, IV Solumedrol, Insulin sc, Coumadin po, Telemetry. In your professional opinion, can you please clarify the acuity and type of CHF if known? Systolic Heart Failure: o Acute o Chronic o Acute on Chronic Diastolic Heart Failure: o Acute o Chronic o Acute on Chronic Systolic & Diastolic Heart Failure: o Acute o Chronic o Acute on Chronic Heart Failure Unable to Determine Other, please specify MTDD
== END 2018-01-16 14:29 | disposition home or self-care (01) | DRG 152 ==
LOC: EC 09:55 → 6SEL 13:27
PROVIDERS: ADMIT Internal Medicine; ATTEND Internal Medicine
PROC: 0CJY8ZZ Inspection of Mouth and Throat, Via Natural or Artificial Opening Endoscopic (ICD-10-PCS; principal; 2018-01-13)
DX: J05.10 Acute epiglottitis without obstruction (principal); J18.9 Pneumonia, unspecified organism; I13.0 Hypertensive heart and chronic kidney disease with heart failure and stage 1 through stage 4 chronic kidney disease, or unspecified chronic kidney disease; J98.11 Atelectasis; I27.21 Secondary pulmonary arterial hypertension; I50.9 Heart failure, unspecified; I48.2 Chronic atrial fibrillation; J43.9 Emphysema, unspecified; R13.10 Dysphagia, unspecified; D64.9 Anemia, unspecified; N18.3 Chronic kidney disease, stage 3 (moderate); E78.00 Pure hypercholesterolemia, unspecified; E78.5 Hyperlipidemia, unspecified; R79.1 Abnormal coagulation profile; M43.9 Deforming dorsopathy, unspecified; M47.9 Spondylosis, unspecified; R07.0 Pain in throat; J40 Bronchitis, not specified as acute or chronic; Z79.82 Long term (current) use of aspirin; Z79.01 Long term (current) use of anticoagulants; Z79.899 Other long term (current) drug therapy; Z90.710 Acquired absence of both cervix and uterus; Z95.0 Presence of cardiac pacemaker; Z90.49 Acquired absence of other specified parts of digestive tract; Z80.0 Family history of malignant neoplasm of digestive organs
CPT/HCPCS: 31575; 36415; 70490; 71046; 71260; 80048; 83036; 85025; 85610; 87040; 87070; 87205; 94640; 96365; 99285